=== PATIENT | female | born 1975 | race Caucasian/White ===

== ENCOUNTER 2020-09-26 17:36 | Observation (INO) | payer MEDICAID ==
[~2020-09-26 17:36] MED LIST: Rocuronium 100 MG/10 ML MDV IV ONE
[2020-09-26] MEDS ORDERED: Sodium Chloride 0.9% 2.5 ML Syringe FLUSH PRN ×2 (17:43)
[2020-09-26] MEDS ORDERED: Sodium Chloride 0.9% 10 ML Syringe FLUSH PRN ×2 (17:43)
[2020-09-26] MEDS ORDERED: Sodium Chloride 0.9% 1,000 ML IV ONE (17:43)
[2020-09-26] MEDS ORDERED: propofoL 100 ML IV SCH (17:45)
[2020-09-26] MEDS ORDERED: Rocuronium 100 MG/10 ML MDV IV ONE (17:46)
--- NOTE | 2020-09-26 18:02 | EDM.PDOC ---
ED HPI GENERAL MEDICAL PROBLEM <Patrick Escalante - Last Filed: 09/26/20 18:46> <Navin Villarreal - Last Filed: 09/26/20 20:46> - General Chief Complaint: Trauma Stated Complaint: EMS ARRIVAL Time Seen by Provider: 09/26/20 17:51 - History of Present Illness INITIAL COMMENTS - FREE TEXT/NARRATIVE: History of present illness: [] EMS said the patient had a fall and was stuporous when he got there. She was not protecting her airway. They began [id number] and she talked and said she did fall and had bad back pain. Mother tells me the patient was upset because she fell holding a baby 2 days ago and when she fell holding the baby it injured the baby's head. Mother says the patient second really hard but never had depression antidepressants or suicidal ideas or attempts in the past. Patient had told the granddaughter that she was dizzy. EMS said the patient had told witnesses that she had been dizzy and then fell. History was updated by the mother after talking to the patient's daughter. The daughter told the patient's mother that the patient said she was dizzy while she was standing. Then she said she was numb in her upper extremities and her hands were shaky. The patient was lowered toward the floor but the daughter was unable to really break her fall substantially. Review of systems: As per history of present illness and below otherwise all systems reviewed and negative. Past medical history: As per history of present illness and as reviewed below otherwise noncontributory. Surgical history: As per history of present illness and as reviewed below otherwise noncontributory. Social history: No reported history of drug or alcohol abuse. Family history: As per history of present illness and as reviewed below otherwise noncontributory. Physical exam: Constitutional - well developed, well-nourished and in no acute distress HEENT - normocephalic, no evidence of trauma - external nose and mouth normal - no mass in neck and no JVD - mucosae moist EYES - PERRL, no icterus - no evidence of inflammation, injection, or drainage Respiratory - no respiratory distress, equal bilateral expansion, lungs diminished throughout with diminished chest excursion Cardiovascular - Regular Rhythm with S1 and S2 appreciated and no murmur, gallop or rub. GI - abdomen soft without distension or organomegaly - normal bowel sounds - no guard or rebound Musculoskeletal no gross deformity of long bones or joints - no tenderness, swelling or edema except when we logrolled her she was exquisitely tender in the junction of the thoracic and lumbar spine posteriorly. Neurologic -eyes flutter. At times she vocalizes but incomprehensibly. She does respond by legal entity controller and that is equal and moving her toes is equal. Psychiatric -unable to assess Hematologic - No petechiae or purpura - mucosa appropriate color and sclera not pale - normal nail bed color and refill Integument - no rash or evidence of trauma - normal turgor Diagnostics: [] Therapeutics: [] Impression: [] Plan: [] Definitive disposition and diagnosis as appropriate pending reevaluation and review of above. (Patrick Escalante) 8:42 PM: Signout received from Dr. Escalante at 7 PM. This is a [id number]-old female with no significant past medical history of hypertension, diabetes, liver, lung, kidney, stroke, PR, seizures in the past who presents ER today secondary to a syncopal episode witnessed by her daughter with EMS dispatch. Upon EMS arrival, the patient was unresponsive and a trauma alert was initiated. It appears that the patient needed to be intubated for airway protection by Dr. Escalante in order to safely and emergently obtain the appropriate studies including a CT scan of the head, C-spine, T-spine, L-spine. Upon return from CAT scan, the patient was responding and try to pull out her tube. Dr. Escalante was able to communicate with her and patient was able to be successfully extubated. Patient's labs including her troponin, CBC, CMP, urine drug screen, alcohol, Cov id, CT scan of the head, C-spine, T-spine, L-spine were all unremarkable. Patient was reevaluated by me and she is currently alert awake and oriented x3. Patient is denying any pain or discomfort. Patient reports that she does not recall what happened her other than feeling dizzy while she was with her daughter. This appears to have possibly happened earlier this week per report that was given to Dr. Escalante by the patient's mother. According to Dr. Escalante's conversation with the patient's mother, the patient had a similar episode while she was holding the several days ago where she passed out. Given patient's had 2 episodes of syncope over the last several days, patient will be admitted to the hospital for further cardiac evaluation for syncope. Case was discussed with Dr. Walters who has agreed to assist this with observation level of care for this patient for further cardiac evaluation/syncope work-up. (Navin Villarreal) - Related Data Allergies Allergy/AdvReac Type Severity Reaction Status Date / Time No Known Allergies Allergy Verified 09/26/20 19:24 Home Meds: Home Meds . [Unable to Verify Home Med List] 09/26/20 [History] Review of Systems - Review of Systems Review Of Systems: Comprehensive ROS is negative, except as noted in HPI. <Patrick Escalante - Last Filed: 09/26/20 18:46> - Review of Systems Review Of Systems: See Below <Navin Villarreal - Last Filed: 09/26/20 20:46> ED EXAM, GENERAL - Physical Exam Exam: See Below <Patrick Escalante - Last Filed: 09/26/20 18:46> - Physical Exam Exam: See Below <Navin Villarreal - Last Filed: 09/26/20 20:46> - Physical Exam Free Text/Narrative:: My physical exam is in the HPI (Patrick Escalante) ED TRAUMA PROCEDURES - Endotracheal Intubation Time of Intubation: 17:50 ET Intubation Indication: Airway Protection Preparation: Suction, BVM Set Up, Difficult Airway Equip Airway Assessment: Obese Pre-Oxygenation: Assisted with BVM, 100% FiO2 Anesthesia Meds: Propofol, Rocuronium Placement: Orotracheal Cords Visualized: Yes ETT Size In mm: -75 Number of Attempts: 1 Confirmed By: CO2 Indicator Tube Secured By: By RT <Patrick Escalante - Last Filed: 09/26/20 18:46> <Patrick Escalante - Last Filed: 09/26/20 18:46> <Navin Villarreal - Last Filed: 09/26/20 20:46> #1 Interpretation EKG Interpretation Comments: EKG done at 1831 shows a sinus rhythm with a heart rate of 74 and a OK 130 and axis 53 with normal QRS normal ST and T no prior for comparison impression normal (Patrick Escalante) #2 Interpretation EKG Interpretation Comments: Repeat EKG obtained at 7:52 PM: EKG: As interpreted by ER physician: Phil: Nonspecific ST-T wave abnormalities Normal axis No evidence of ST elevation PR Normal sinus rhythm heart rate of 80 (PhilNavin) Course <BorisPatrick - Last Filed: 09/26/20 18:46> - Vital Signs Text/Narrative:: This patient could be an overdose because of the psychological trauma she is experienced just now. The patient also could be had an injury after falling. I felt like it was extremely questionable whether she could protect her airway and CT scan so I did RSI and intubated her. I explained that to the mother and the patient was taken to CT. Patient returned from CT and initial quick review of the CT scans of the head and spine do not reveal any significant injury to me. There is a strange lucency diffusely in the body of C7. Patient was wide awake and shaking her head in response to questions. She was doing so appropriately when she got back from CT. Patient was able to take a deep breath and ventilate herself well without the ventilator. She agreed to protect her own airway and said she shook her head that she was able to spit up any secretions if she should vomit. I extubated her at 1827 hrs. The patient reports she has had dizzy spells. They have been getting worse since her stress. The dizzy spell was so bad that it caused her to pass out and fall tonight. She denies that she overdosed or took any effort to try to hurt herself. Due to a high probability of clinically significant, life threatening deterioration, the patient required my highest level of preparedness to intervene emergently and I personally spent this critical care time directly and personally managing the patient. This critical care time included obtaining a history; examining the patient; pulse oximetry; ordering and review of studies; arranging urgent treatment with development of a management plan; evaluation of patient's response to treatment; frequent reassessment; and, discussions with other providers. This critical care time was performed to assess and manage the high probability of imminent, life-threatening deterioration that could result in multi-organ failure. It was exclusive of separately billable procedures and treating other patients and teaching time. Critical care time 32 minutes (Patrick Escalante) Last Recorded V/S: Last Vital Signs Temp 98.0 F 09/26/20 18:00 Pulse 85 09/26/20 19:12 Resp 18 09/26/20 19:12 BP 137/92 H 09/26/20 19:12 Pulse Ox 100 09/26/20 19:12 - Orders/Labs/Meds Orders: Active Orders 24 hr Category Date Time Status Blood Glucose Check, Bedside [RC] ONETIME Care 09/26/20 17:43 Active Cervical Spine Precautions [RC] ASDIRECTED Care 09/26/20 17:43 Active EKG Documentation Completion [RC] AM Care 09/26/20 19:28 Active EKG Documentation Completion [RC] STAT Care 09/26/20 17:43 Active Insert Urinary Catheter [OM.PC] Q24H Care 09/26/20 18:00 Ordered Orogastric Tube Managment [Gastrointestinal Tube Mgmt] Care 09/26/20 17:58 Active [RC] ASDIRECTED RASS Sedation Scale [RC] ASDIRECTED Care 09/26/20 17:44 Active Urinary Catheter Assessment [RC] ASDIRECTED Care 09/26/20 17:59 Active CPK [CREATINE KINASE,CK] [CHEM] Stat Lab 09/26/20 20:40 Ordered LACTIC ACID [CHEM] Stat Lab 09/26/20 20:39 Ordered PROLACTIN [CHEM] Stat Lab 09/26/20 20:40 Ordered Sodium Chloride 0.9% [Saline Flush] Med 09/26/20 17:43 Active 10 ml FLUSH ASDIRECTED PRN Sodium Chloride 0.9% [Saline Flush] Med 09/26/20 17:43 Active 10 ml FLUSH ASDIRECTED PRN Sodium Chloride 0.9% [Saline Flush] Med 09/26/20 17:43 Active 2.5 ml FLUSH ASDIRECTED PRN Sodium Chloride 0.9% [Saline Flush] Med 09/26/20 17:43 Active 2.5 ml FLUSH ASDIRECTED PRN propofoL [Diprivan 100 ML] 100 ml Med 09/26/20 17:45 Active IV TITRATE Desired Level of Sedation (RASS) [AST] Click to Edit Oth 09/26/20 17:44 Ordered Saline Lock Insert [OM.PC] Stat Ot 09/26/20 17:43 Ordered Medication Orders Propofol (Diprivan 100 Ml) 100 mls @ 2.7 mls/hr IV TITRATE WILMER; Protocol Sodium Chloride (Sodium Chloride 0.9% 10 Ml Syringe) 10 ml FLUSH ASDIRECTED PRN PRN Reason: Keep Vein Open Last Admin: 09/26/20 18:40 Dose: 10 ml Documented by: DAYANA Sodium Chloride (Sodium Chloride 0.9% 2.5 Ml Syringe) 2.5 ml FLUSH ASDIRECTED PRN PRN Reason: Keep Vein Open Last Admin: 09/26/20 18:40 Dose: 2.5 ml Documented by: DAYANA Sodium Chloride (Sodium Chloride 0.9% 10 Ml Syringe) 10 ml FLUSH ASDIRECTED PRN PRN Reason: Keep Vein Open Last Admin: 09/26/20 18:40 Dose: 10 ml Documented by: DAYANA Sodium Chloride (Sodium Chloride 0.9% 2.5 Ml Syringe) 2.5 ml FLUSH ASDIRECTED PRN PRN Reason: Keep Vein Open Last Admin: 09/26/20 18:40 Dose: 2.5 ml Documented by: DAYANA Labs: Laboratory Tests 09/26/20 09/26/20 09/26/20 Range/Units 17:51 17:51 17:51 WBC 10.04 (4.0-11.0) K/uL RBC 4.90 (4.30-5.90) M/uL Hgb 14.8 (12.0-16.0) g/dL Hct 43.1 (36.0-46.0) % MCV 88.0 (80.0-98.0) fL MCH 30.2 (27.0-32.0) pg MCHC 34.3 (31.0-37.0) g/dL RDW Std Deviation 41.2 (28.0-62.0) fl RDW Coeff of Mega 13 (11.0-15.0) % Plt Count 356 (150-400) K/uL MPV 10.80 (7.40-12.00) fL Neut % (Auto) 54.8 (48.0-80.0) % Lymph % (Auto) 35.6 (16.0-40.0) % Bladen % (Auto) 8.7 (0.0-15.0) % Eos % (Auto) 0.6 (0.0-7.0) % Baso % (Auto) 0.3 (0.0-1.5) % Neut # (Auto) 5.5 (1.4-5.7) K/uL Lymph # (Auto) 3.6 H (0.6-2.4) K/uL Bladen # (Auto) 0.9 H (0.0-0.8) K/uL Eos # (Auto) 0.1 (0.0-0.7) K/uL Baso # (Auto) 0.0 (0.0-0.1) K/uL Nucleated RBC % 0.0 /100WBC Nucleated RBCs # 0 K/uL INR 0.97 Sodium 140 (136-145) mmol/L Potassium 3.7 (3.5-5.1) mmol/L Chloride 105 (98-107) mmol/L Carbon Dioxide 20.1 L (21.0-32.0) mmol/L BUN 15 (7.0-18.0) mg/dL Creatinine 1.1 H (0.6-1.0) mg/dL Est Cr Clr Drug Dosing 68.92 mL/min Estimated GFR (MDRD) 54.2 ml/min Glucose 110 H (74-106) mg/dL Calcium 8.8 (8.5-10.1) mg/dL Total Bilirubin 0.5 (0.2-1.0) mg/dL AST 19 (15-37) IU/L ALT 25 (14-63) IU/L Alkaline Phosphatase 96 (46-116) U/L Troponin I (0.000-0.056) ng/mL Total Protein 7.8 (6.4-8.2) g/dL Albumin 4.5 (3.4-5.0) g/dL Globulin 3.3 (2.6-4.0) g/dL Albumin/Globulin Ratio 1.4 (0.9-1.6) Lipase 83 (73-393) U/L TSH 3rd Generation (0.36-3.74) uIU/mL Urine Color Urine Appearance Urine pH (5.0-8.0) Ur Specific [place] (1.001-1.035) Urine Protein (NEGATIVE) mg/dL Urine Glucose (UA) (NEGATIVE) mg/dL Urine Ketones (NEGATIVE) mg/dL Urine Occult Blood (NEGATIVE) Urine Nitrite (NEGATIVE) Urine Bilirubin (NEGATIVE) Urine Urobilinogen (<2.0) EU/dL Ur Leukocyte Esterase (NEGATIVE) Urine RBC (0-2/HPF) Urine WBC (0-5/HPF) Ur Epithelial Cells (NONE-FEW) Urine Bacteria (NEGATIVE) Urine HCG, Qual (NEGATIVE) Salicylates (0-20) mg/dL Urine Opiates Screen (NEGATIVE) Ur Oxycodone Screen (NEGATIVE) Urine Methadone Screen (NEGATIVE) Acetaminophen ug/mL Ur Barbiturates Screen (NEGATIVE) Ur Phencyclidine Scrn (NEGATIVE) Ur Amphetamine Screen (NEGATIVE) U Methamphetamines Scrn (NEGATIVE) U Benzodiazepines Scrn (NEGATIVE) U Cocaine Metab Screen (NEGATIVE) U Marijuana (THC) Screen (NEGATIVE) Ethyl Alcohol < 3.0 mg/dL SARS-CoV-2 RNA (TO) (NEGATIVE) Blood Type Antibody Screen 09/26/20 09/26/20 09/26/20 Range/Units 17:51 17:51 18:26 WBC (4.0-11.0) K/uL RBC (4.30-5.90) M/uL Hgb (12.0-16.0) g/dL Hct (36.0-46.0) % MCV (80.0-98.0) fL MCH (27.0-32.0) pg MCHC (31.0-37.0) g/dL RDW Std Deviation (28.0-62.0) fl RDW Coeff of Mega (11.0-15.0) % Plt Count (150-400) K/uL MPV (7.40-12.00) fL Neut % (Auto) (48.0-80.0) % Lymph % (Auto) (16.0-40.0) % Bladen % (Auto) (0.0-15.0) % Eos % (Auto) (0.0-7.0) % Baso % (Auto) (0.0-1.5) % Neut # (Auto) (1.4-5.7) K/uL Lymph # (Auto) (0.6-2.4) K/uL Bladen # (Auto) (0.0-0.8) K/uL Eos # (Auto) (0.0-0.7) K/uL Baso # (Auto) (0.0-0.1) K/uL Nucleated RBC % /100WBC Nucleated RBCs # K/uL INR Sodium (136-145) mmol/L Potassium (3.5-5.1) mmol/L Chloride (98-107) mmol/L Carbon Dioxide (21.0-32.0) mmol/L BUN (7.0-18.0) mg/dL Creatinine (0.6-1.0) mg/dL Est Cr Clr Drug Dosing mL/min Estimated GFR (MDRD) ml/min Glucose (74-106) mg/dL Calcium (8.5-10.1) mg/dL Total Bilirubin (0.2-1.0) mg/dL AST (15-37) IU/L ALT (14-63) IU/L Alkaline Phosphatase (46-116) U/L Troponin I < 0.050 (0.000-0.056) ng/mL Total Protein (6.4-8.2) g/dL Albumin (3.4-5.0) g/dL Globulin (2.6-4.0) g/dL Albumin/Globulin Ratio (0.9-1.6) Lipase (73-393) U/L TSH 3rd Generation 0.38 (0.36-3.74) uIU/mL Urine Color Urine Appearance Urine pH (5.0-8.0) Ur Specific [place] (1.001-1.035) Urine Protein (NEGATIVE) mg/dL Urine Glucose (UA) (NEGATIVE) mg/dL Urine Ketones (NEGATIVE) mg/dL Urine Occult Blood (NEGATIVE) Urine Nitrite (NEGATIVE) Urine Bilirubin (NEGATIVE) Urine Urobilinogen (<2.0) EU/dL Ur Leukocyte Esterase (NEGATIVE) Urine RBC (0-2/HPF) Urine WBC (0-5/HPF) Ur Epithelial Cells (NONE-FEW) Urine Bacteria (NEGATIVE) Urine HCG, Qual (NEGATIVE) Salicylates 0.8 (0-20) mg/dL Urine Opiates Screen (NEGATIVE) Ur Oxycodone Screen (NEGATIVE) Urine Methadone Screen (NEGATIVE) Acetaminophen <2.0 ug/mL Ur Barbiturates Screen (NEGATIVE) Ur Phencyclidine Scrn (NEGATIVE) Ur Amphetamine Screen (NEGATIVE) U Methamphetamines Scrn (NEGATIVE) U Benzodiazepines Scrn (NEGATIVE) U Cocaine Metab Screen (NEGATIVE) U Marijuana (THC) Screen (NEGATIVE) Ethyl Alcohol mg/dL SARS-CoV-2 RNA (TO) (NEGATIVE) Blood Type O NEGATIVE Antibody Screen NEGATIVE 09/26/20 09/26/20 09/26/20 Range/Units 19:02 19:02 19:02 WBC (4.0-11.0) K/uL RBC (4.30-5.90) M/uL Hgb (12.0-16.0) g/dL Hct (36.0-46.0) % MCV (80.0-98.0) fL MCH (27.0-32.0) pg MCHC (31.0-37.0) g/dL RDW Std Deviation (28.0-62.0) fl RDW Coeff of Mega (11.0-15.0) % Plt Count (150-400) K/uL MPV (7.40-12.00) fL Neut % (Auto) (48.0-80.0) % Lymph % (Auto) (16.0-40.0) % Bladen % (Auto) (0.0-15.0) % Eos % (Auto) (0.0-7.0) % Baso % (Auto) (0.0-1.5) % Neut # (Auto) (1.4-5.7) K/uL Lymph # (Auto) (0.6-2.4) K/uL Bladen # (Auto) (0.0-0.8) K/uL Eos # (Auto) (0.0-0.7) K/uL Baso # (Auto) (0.0-0.1) K/uL Nucleated RBC % /100WBC Nucleated RBCs # K/uL INR Sodium (136-145) mmol/L Potassium (3.5-5.1) mmol/L Chloride (98-107) mmol/L Carbon Dioxide (21.0-32.0) mmol/L BUN (7.0-18.0) mg/dL Creatinine (0.6-1.0) mg/dL Est Cr Clr Drug Dosing mL/min Estimated GFR (MDRD) ml/min Glucose (74-106) mg/dL Calcium (8.5-10.1) mg/dL Total Bilirubin (0.2-1.0) mg/dL AST (15-37) IU/L ALT (14-63) IU/L Alkaline Phosphatase (46-116) U/L Troponin I (0.000-0.056) ng/mL Total Protein (6.4-8.2) g/dL Albumin (3.4-5.0) g/dL Globulin (2.6-4.0) g/dL Albumin/Globulin Ratio (0.9-1.6) Lipase (73-393) U/L TSH 3rd Generation (0.36-3.74) uIU/mL Urine Color YELLOW Urine Appearance CLEAR Urine pH 6.0 (5.0-8.0) Ur Specific [place] 1.010 (1.001-1.035) Urine Protein NEGATIVE (NEGATIVE) mg/dL Urine Glucose (UA) NEGATIVE (NEGATIVE) mg/dL Urine Ketones NEGATIVE (NEGATIVE) mg/dL Urine Occult Blood NEGATIVE (NEGATIVE) Urine Nitrite NEGATIVE (NEGATIVE) Urine Bilirubin NEGATIVE (NEGATIVE) Urine Urobilinogen 0.2 (<2.0) EU/dL Ur Leukocyte Esterase NEGATIVE (NEGATIVE) Urine RBC 0-2 (0-2/HPF) Urine WBC 0-2 (0-5/HPF) Ur Epithelial Cells FEW (NONE-FEW) Urine Bacteria RARE (NEGATIVE) Urine HCG, Qual NEGATIVE (NEGATIVE) Salicylates (0-20) mg/dL Urine Opiates Screen NEGATIVE (NEGATIVE) Ur Oxycodone Screen NEGATIVE (NEGATIVE) Urine Methadone Screen NEGATIVE (NEGATIVE) Acetaminophen ug/mL Ur Barbiturates Screen NEGATIVE (NEGATIVE) Ur Phencyclidine Scrn NEGATIVE (NEGATIVE) Ur Amphetamine Screen NEGATIVE (NEGATIVE) U Methamphetamines Scrn NEGATIVE (NEGATIVE) U Benzodiazepines Scrn NEGATIVE (NEGATIVE) U Cocaine Metab Screen NEGATIVE (NEGATIVE) U Marijuana (THC) Screen NEGATIVE (NEGATIVE) Ethyl Alcohol mg/dL SARS-CoV-2 RNA (TO) (NEGATIVE) Blood Type Antibody Screen 09/26/20 Range/Units 19:02 WBC (4.0-11.0) K/uL RBC (4.30-5.90) M/uL Hgb (12.0-16.0) g/dL Hct (36.0-46.0) % MCV (80.0-98.0) fL MCH (27.0-32.0) pg MCHC (31.0-37.0) g/dL RDW Std Deviation (28.0-62.0) fl RDW Coeff of Mega (11.0-15.0) % Plt Count (150-400) K/uL MPV (7.40-12.00) fL Neut % (Auto) (48.0-80.0) % Lymph % (Auto) (16.0-40.0) % Bladen % (Auto) (0.0-15.0) % Eos % (Auto) (0.0-7.0) % Baso % (Auto) (0.0-1.5) % Neut # (Auto) (1.4-5.7) K/uL Lymph # (Auto) (0.6-2.4) K/uL Bladen # (Auto) (0.0-0.8) K/uL Eos # (Auto) (0.0-0.7) K/uL Baso # (Auto) (0.0-0.1) K/uL Nucleated RBC % /100WBC Nucleated RBCs # K/uL INR Sodium (136-145) mmol/L Potassium (3.5-5.1) mmol/L Chloride (98-107) mmol/L Carbon Dioxide (21.0-32.0) mmol/L BUN (7.0-18.0) mg/dL Creatinine (0.6-1.0) mg/dL Est Cr Clr Drug Dosing mL/min Estimated GFR (MDRD) ml/min Glucose (74-106) mg/dL Calcium (8.5-10.1) mg/dL Total Bilirubin (0.2-1.0) mg/dL AST (15-37) IU/L ALT (14-63) IU/L Alkaline Phosphatase (46-116) U/L Troponin I (0.000-0.056) ng/mL Total Protein (6.4-8.2) g/dL Albumin (3.4-5.0) g/dL Globulin (2.6-4.0) g/dL Albumin/Globulin Ratio (0.9-1.6) Lipase (73-393) U/L TSH 3rd Generation (0.36-3.74) uIU/mL Urine Color Urine Appearance Urine pH (5.0-8.0) Ur Specific [place] (1.001-1.035) Urine Protein (NEGATIVE) mg/dL Urine Glucose (UA) (NEGATIVE) mg/dL Urine Ketones (NEGATIVE) mg/dL Urine Occult Blood (NEGATIVE) Urine Nitrite (NEGATIVE) Urine Bilirubin (NEGATIVE) Urine Urobilinogen (<2.0) EU/dL Ur Leukocyte Esterase (NEGATIVE) Urine RBC (0-2/HPF) Urine WBC (0-5/HPF) Ur Epithelial Cells (NONE-FEW) Urine Bacteria (NEGATIVE) Urine HCG, Qual (NEGATIVE) Salicylates (0-20) mg/dL Urine Opiates Screen (NEGATIVE) Ur Oxycodone Screen (NEGATIVE) Urine Methadone Screen (NEGATIVE) Acetaminophen ug/mL Ur Barbiturates Screen (NEGATIVE) Ur Phencyclidine Scrn (NEGATIVE) Ur Amphetamine Screen (NEGATIVE) U Methamphetamines Scrn (NEGATIVE) U Benzodiazepines Scrn (NEGATIVE) U Cocaine Metab Screen (NEGATIVE) U Marijuana (THC) Screen (NEGATIVE) Ethyl Alcohol mg/dL SARS-CoV-2 RNA (TO) NEGATIVE (NEGATIVE) Blood Type Antibody Screen Meds: Medications Generic Name Dose Route Start Last Admin Trade Name Freq PRN Reason Stop Dose Admin Propofol 100 mls @ 2.7 mls/hr 09/26/20 17:45 Diprivan 100 Ml IV TITRATE WILMER Protocol 5 MCG/KG/MIN Sodium Chloride 10 ml 09/26/20 17:43 09/26/20 18:40 Sodium Chloride 0.9% 10 Ml Syringe FLUSH 10 ml ASDIRECTED PRN Administration Keep Vein Open Sodium Chloride 2.5 ml 09/26/20 17:43 09/26/20 18:40 Sodium Chloride 0.9% 2.5 Ml Syringe FLUSH 2.5 ml ASDIRECTED PRN Administration Keep Vein Open Sodium Chloride 10 ml 09/26/20 17:43 09/26/20 18:40 Sodium Chloride 0.9% 10 Ml Syringe FLUSH 10 ml ASDIRECTED PRN Administration Keep Vein Open Sodium Chloride 2.5 ml 09/26/20 17:43 09/26/20 18:40 Sodium Chloride 0.9% 2.5 Ml Syringe FLUSH 2.5 ml ASDIRECTED PRN Administration Keep Vein Open Discontinued Medications Generic Name Dose Route Start Last Admin Trade Name Freq PRN Reason Stop Dose Admin Sodium Chloride 1,000 mls @ 999 mls/hr 09/26/20 17:43 09/26/20 18:40 Normal Saline IV 09/26/20 18:43 999 mls/hr .Bolus ONE Administration Departure <Patrick Escalante - Last Filed: 09/26/20 18:46> - Departure Time of Disposition: 20:46 Condition: Good <Navin Villarreal - Last Filed: 09/26/20 20:46> - Departure Disposition: Refer to Observation Clinical Impression: Syncope Qualifiers: Syncope type: unspecified Qualified Code(s): R55 - Syncope and collapse - Discharge Information Referrals: PCP,None [Primary Care Provider] - Forms: ED Department Discharge Sepsis Event Note (ED) - Focused Exam Vital Signs: Vital Signs Temp Pulse Resp BP BP Pulse Ox 09/26/20 19:12 85 18 137/92 H 100 09/26/20 18:27 84 18 133/73 99 09/26/20 18:00 98.0 F 78 16 128/71 100 09/26/20 17:45 98.1 F 80 18 130/71 98 09/26/20 17:36 95.3 F L 89 26 H 139/108 H 100 - My Orders Last 24 Hours: My Active Orders 09/26/20 19:28 EKG Documentation Completion [RC] AM - Assessment/Plan Last 24 Hours: My Active Orders 09/26/20 19:28 EKG Documentation Completion [RC] AM
[2020-09-26 18:35] LABS: BLOOD UREA NITROGEN,BUN 15 mg/dL (7.0-18.0); CARBON DIOXIDE,CO2 20.1 mmol/L (21.0-32.0); CHLORIDE,CL 105 mmol/L (98-107); GLUCOSE RANDOM 110 mg/dL (74-106); LIPASE 83 U/L (73-393); POTASSIUM,K 3.7 mmol/L (3.5-5.1); SODIUM,NA 140 mmol/L (136-145)
[2020-09-26 18:44] LABS: ACETAMINOPHEN <2.0 ug/mL
--- NOTE | 2020-09-26 19:00 | CR ---
Indication: Trauma post intubation Comparison: None available. Technique: Single AP view chest Findings: There is hyperinflation and chronic interstitial change. There is demonstration endotracheal tube within the mid trachea. There is no dense consolidation, effusion or pneumothorax. The cardiac silhouette is mildly prominent. The bony thorax is grossly intact. Impression: Satisfactory position of endotracheal tube with mild hyperinflation. No dense consolidation is appreciated. Dictated by Keon Denson MD @ 09/26/2020 6:59:[address] Keon Denson @ Sep 26 2020 6:59PM
--- NOTE | 2020-09-26 19:12 | CT ---
INDICATION: Trauma TECHNIQUE: CT head without contrast. COMPARISON: None available FINDINGS: Artifact limits evaluation of the posterior fossa. The ventricles and sulci are within normal limits. There is no mass effect or midline shift. There is no loss of uribe-white differentiation. There is no evidence of gross acute intracranial hemorrhage. No acute calvarial fracture is seen. Minor maxillary sinus mucosal thickening is noted. The mastoid air cells are clear. The visualized orbits are within normal limits. An endotracheal tube is seen with fluid/debris in the nasal cavity and nasopharynx. IMPRESSION: No evidence of a gross acute intracranial hemorrhage, mass effect or loss of uribe-white differentiation. Please note that all CT scans at this facility use dose modulation, iterative reconstruction, and/or weight-based dosing when appropriate to reduce radiation dose to as low as reasonably achievable. Dictated by Cuate Vizcaino MD @ 09/26/2020 7:10:[address] Cuate Vizcaino @ Sep 26 2020 7:10PM
--- NOTE | 2020-09-26 19:19 | CT ---
INDICATION: Trauma TECHNIQUE: CT cervical spine without contrast. COMPARISON: None available FINDINGS: There is straightening of the cervical lordosis. The craniocervical and atlantoaxial alignments are near anatomical. There is no evidence of an acute cervical spine fracture. A C7 hemangioma is seen. There is no significant precervical soft tissue swelling. Post thyroidectomy changes are noted. An endotracheal tube is seen. IMPRESSION: No evidence of an acute cervical spine fracture. Please note that all CT scans at this facility use dose modulation, iterative reconstruction, and/or weight-based dosing when appropriate to reduce radiation dose to as low as reasonably achievable. Dictated by Cuate Vizcaino MD @ 09/26/2020 7:17:[address] Cuate Vizcaino @ Sep 26 2020 7:17PM
--- NOTE | 2020-09-26 19:25 | CR ---
INDICATION: Trauma TECHNIQUE: Single view pelvis COMPARISONS: None available. FINDINGS: Femoral heads are well-seated in the acetabula. There is no displaced fracture, dislocation or acute osseous abnormality. There is axial loss of joint space with minimal marginal osteophyte formation. The soft tissues are unremarkable. IMPRESSION: Mild degenerative changes of the hips without acute osseous abnormality. Dictated by Keon Denson MD @ 09/26/2020 7:23:[address] Keon Denson @ Sep 26 2020 7:23PM
--- NOTE | 2020-09-26 19:29 | CT ---
INDICATION: Trauma TECHNIQUE: CT thoracic spine without contrast. COMPARISON: None available FINDINGS: The thoracic spine alignment is within normal limits. The facets are anatomically aligned. There is no evidence of an acute thoracic spine fracture. No paravertebral soft tissue mass is seen. An endotracheal tube is noted. There is an ovoid density within the gallbladder suggestive of a sludge ball versus a poorly calcified gallstone. A 1 cm anterior hepatic low-density lesion is seen, demonstrating higher than water attenuation, not well evaluated. IMPRESSION: No evidence of an acute thoracic spine fracture. A 1 cm higher than water attenuation hepatic lesion, not well evaluated. Please note that all CT scans at this facility use dose modulation, iterative reconstruction, and/or weight-based dosing when appropriate to reduce radiation dose to as low as reasonably achievable. Dictated by Cuate Vizcaino MD @ 09/26/2020 7:28:[address] Cuate Vizcaino @ Sep 26 2020 7:28PM
--- NOTE | 2020-09-26 19:37 | CT ---
INDICATION: Trauma TECHNIQUE: CT lumbar spine without contrast. COMPARISON: None available FINDINGS: There is bilateral L5 spondylolysis with grade 1 anterolisthesis of L5 on S1. The lumbar spine alignment is otherwise within normal limits. The vertebral body heights are preserved. There is no evidence of an acute lumbar spine fracture. There are degenerative changes at the lumbosacral junction. No paravertebral soft tissue mass is seen. IMPRESSION: No evidence of an acute lumbar spine fracture. Please note that all CT scans at this facility use dose modulation, iterative reconstruction, and/or weight-based dosing when appropriate to reduce radiation dose to as low as reasonably achievable. Dictated by Cuate Vizcaino MD @ 09/26/2020 7:36:[address] Cuate Vizcaino @ Sep 26 2020 7:36PM
--- NOTE | 2020-09-26 19:54 | CR ---
INDICATION: Post extubation. TECHNIQUE: Chest 1 view. COMPARISON: 09/26/2020, 1751 hours. FINDINGS: Cardiovascular and mediastinum: Heart size and vasculature are normal in caliber and appearance. Mediastinum is within normal limits. Lungs and pleural space: Lungs are clear. No sign of infiltrate or mass. No sign of pleural effusion. No pneumothorax. Bones and soft tissues: No significant findings. IMPRESSION: Lungs are clear. Dictated by Quincy Zhong MD @ 09/26/2020 7:52:[address] Quincy Zhong @ Sep 26 2020 7:52PM
[2020-09-26] MEDS ORDERED: Albuterol/Ipratropium 3.0-0.5 MG/3 ML Neb Soln NEB PRN (21:09)
[2020-09-26] MEDS ORDERED: Ondansetron 4 MG/2 ML SDV IVPUSH PRN (21:09)
[2020-09-26] MEDS ORDERED: Acetaminophen 325 MG Tab PO PRN (21:09)
--- NOTE | 2020-09-26 21:18 | PCM.HP.2 ---
H&P History of Present Illness - General Date of Service: 09/26/20 Admit Problem/Dx: Admission Diagnosis/Problem Admission Diagnosis/Problem Syncope - History of Present Illness Initial Comments - Free Text/Narative: Patient is a 45-year-old female with past medical history of thyroid cancer status post resection, last radiation in November 2019 follows up with an senior front end engineer on outpatient basis for a remanent nodule of the cancer, who comes in secondary to episode of syncope and unresponsiveness. In the ER patient was found to be unresponsive and due to concerns of airway protection patient was intubated and extensive imaging was done including CT scan of the head, neck, spine all of that came back negative for any acute fractures. Soon after the imaging patient started to fight the tube and wake up, as a result patient was extubated and her respiratory status was monitored closely. She was able to speak and maintain her airway thereafter. Reportedly patient was seen by her granddaughter who states that patient became shaky and lost consciousness and fell. There was no reported seizure-like activity. Per patient she has been having dizzy episodes since March of this year. States that she had informed her senior front end engineer about these episodes but nothing really was done. She states that she has not reported the symptoms to her primary care doctor Dr. Rasheed, patient states that 2 days back she was holding a child at a care center when she had a similar episode which ended up resulting in biliary really hurt. Patient was quite tearful during my conversation. Reported some soreness in her throat from intubation but no chest pain, nausea, vomiting or syncope. Patient denied any suicidal ideation. Patient has no history of depression or anxiety. EKG unremarkable, troponin was negative. Family at bedside. - Related Data Allergies/Adverse Reactions: Allergies Allergy/AdvReac Type Severity Reaction Status Date / Time No Known Allergies Allergy Verified 09/26/20 23:49 Home Medications: Home Meds Levothyroxine [Synthroid] 100 mcg PO ACBREAKFAST 09/26/20 [History] Past Medical History Other OB/BYN History: unable to obtain Other Psychiatric History: unable to obtain Other Endocrine/Metabolic History: pt mother reports hx of thyroid cancer. - Past Surgical History Other HEENT Surgeries/Procedures: Unable to obtain Other Cardiovascular Surgeries/Procedures: unable to obtain Other Respiratory Surgeries/Procedures: unable to obtain Other GI Surgeries/Procedures: unable to obtain Other Female Surgeries/Procedures: unable to obtain Other Endocrine Surgeries/Procedures: unable to obtain Other Neurological Surgeries/Procedures: unable to obtain Other Musculoskeletal Surgeries/Procedures:: unable to obtain Social & Family History - Family History Family Medical History: No Pertinent Family History - Tobacco Use Tobacco Use Status *Q: Unknown Ever Used Tobacco - Recreational Drug Use Recreational Drug Use: No H&P Review of Systems - Review of Systems: Review Of Systems: See Below General: Reports: Malaise, Weakness, Fatigue. Denies: Fever, Chills Pulmonary: Denies: Shortness of Breath, Wheezing Cardiovascular: Reports: Syncope. Denies: Chest Pain, Palpitations, Dyspnea on Exertion, Orthopnea, Lightheadedness Gastrointestinal: Denies: Abdominal Pain, Anorexia, Black Stool Genitourinary: Denies: Frequency, Burning, Pain Musculoskeletal: Denies: Neck Pain, Shoulder Pain, Arm Pain Skin: Denies: Cyanosis, Jaundice Psychiatric: Denies: Confusion, Depression, Mood Lability Neurological: Reports: Headache. Denies: Confusion, Dizziness, Paresthesia, Pre-Existing Deficit, Difficulty Walking Hematologic/Lymphatic: Denies: Easy Bleeding, Easy Bruising Exam - Exam Exam: See Below - Vital Signs Vital Signs: Last Vital Signs Temp 36.7 C 09/26/20 18:00 Pulse 85 09/26/20 19:12 Resp 18 09/26/20 19:12 BP 137/92 H 09/26/20 19:12 Pulse Ox 100 09/26/20 19:12 Weight: 90 kg - Exam General: Alert, Oriented, Mild Distress Neck: Supple, Trachea Midline Lungs: Clear to Auscultation, Normal Respiratory Effort Cardiovascular: Regular Rate, Regular Rhythm GI/Abdominal Exam: Normal Bowel Sounds, Soft, Non-Tender Back Exam: Normal Inspection. No: CVA Tenderness (L), CVA Tenderness (R) Extremities: Normal Inspection, Normal Range of Motion, Non-Tender, No Pedal Edema. No: Joint Swelling, Arm Pain - Patient Data Lab Results Last 24 hrs: Laboratory Results - last 24 hr 09/26/20 09/26/20 09/26/20 Range/Units 17:51 17:51 17:51 WBC 10.04 (4.0-11.0) K/uL RBC 4.90 (4.30-5.90) M/uL Hgb 14.8 (12.0-16.0) g/dL Hct 43.1 (36.0-46.0) % MCV 88.0 (80.0-98.0) fL MCH 30.2 (27.0-32.0) pg MCHC 34.3 (31.0-37.0) g/dL RDW Std Deviation 41.2 (28.0-62.0) fl RDW Coeff of Mega 13 (11.0-15.0) % Plt Count 356 (150-400) K/uL MPV 10.80 (7.40-12.00) fL Neut % (Auto) 54.8 (48.0-80.0) % Lymph % (Auto) 35.6 (16.0-40.0) % Ocean % (Auto) 8.7 (0.0-15.0) % Eos % (Auto) 0.6 (0.0-7.0) % Baso % (Auto) 0.3 (0.0-1.5) % Neut # (Auto) 5.5 (1.4-5.7) K/uL Lymph # (Auto) 3.6 H (0.6-2.4) K/uL Ocean # (Auto) 0.9 H (0.0-0.8) K/uL Eos # (Auto) 0.1 (0.0-0.7) K/uL Baso # (Auto) 0.0 (0.0-0.1) K/uL Nucleated RBC % 0.0 /100WBC Nucleated RBCs # 0 K/uL INR 0.97 Sodium 140 (136-145) mmol/L Potassium 3.7 (3.5-5.1) mmol/L Chloride 105 (98-107) mmol/L Carbon Dioxide 20.1 L (21.0-32.0) mmol/L BUN 15 (7.0-18.0) mg/dL Creatinine 1.1 H (0.6-1.0) mg/dL Est Cr Clr Drug Dosing 68.92 mL/min Estimated GFR (MDRD) 54.2 ml/min Glucose 110 H (74-106) mg/dL Lactic Acid (0.4-2.0) mmol/L Calcium 8.8 (8.5-10.1) mg/dL Total Bilirubin 0.5 (0.2-1.0) mg/dL AST 19 (15-37) IU/L ALT 25 (14-63) IU/L Alkaline Phosphatase 96 (46-116) U/L Creatine Kinase (26-308) U/L Troponin I (0.000-0.056) ng/mL Total Protein 7.8 (6.4-8.2) g/dL Albumin 4.5 (3.4-5.0) g/dL Globulin 3.3 (2.6-4.0) g/dL Albumin/Globulin Ratio 1.4 (0.9-1.6) Lipase 83 (73-393) U/L TSH 3rd Generation (0.36-3.74) uIU/mL Prolactin ng/mL Urine Color Urine Appearance Urine pH (5.0-8.0) Ur Specific [place] (1.001-1.035) Urine Protein (NEGATIVE) mg/dL Urine Glucose (UA) (NEGATIVE) mg/dL Urine Ketones (NEGATIVE) mg/dL Urine Occult Blood (NEGATIVE) Urine Nitrite (NEGATIVE) Urine Bilirubin (NEGATIVE) Urine Urobilinogen (<2.0) EU/dL Ur Leukocyte Esterase (NEGATIVE) Urine RBC (0-2/HPF) Urine WBC (0-5/HPF) Ur Epithelial Cells (NONE-FEW) Urine Bacteria (NEGATIVE) Urine HCG, Qual (NEGATIVE) Salicylates (0-20) mg/dL Urine Opiates Screen (NEGATIVE) Ur Oxycodone Screen (NEGATIVE) Urine Methadone Screen (NEGATIVE) Acetaminophen ug/mL Ur Barbiturates Screen (NEGATIVE) Ur Phencyclidine Scrn (NEGATIVE) Ur Amphetamine Screen (NEGATIVE) U Methamphetamines Scrn (NEGATIVE) U Benzodiazepines Scrn (NEGATIVE) U Cocaine Metab Screen (NEGATIVE) U Marijuana (THC) Screen (NEGATIVE) Ethyl Alcohol < 3.0 mg/dL SARS-CoV-2 RNA (TO) (NEGATIVE) Blood Type Antibody Screen 09/26/20 09/26/20 09/26/20 Range/Units 17:51 17:51 17:51 WBC (4.0-11.0) K/uL RBC (4.30-5.90) M/uL Hgb (12.0-16.0) g/dL Hct (36.0-46.0) % MCV (80.0-98.0) fL MCH (27.0-32.0) pg MCHC (31.0-37.0) g/dL RDW Std Deviation (28.0-62.0) fl RDW Coeff of Mega (11.0-15.0) % Plt Count (150-400) K/uL MPV (7.40-12.00) fL Neut % (Auto) (48.0-80.0) % Lymph % (Auto) (16.0-40.0) % Ocean % (Auto) (0.0-15.0) % Eos % (Auto) (0.0-7.0) % Baso % (Auto) (0.0-1.5) % Neut # (Auto) (1.4-5.7) K/uL Lymph # (Auto) (0.6-2.4) K/uL Ocean # (Auto) (0.0-0.8) K/uL Eos # (Auto) (0.0-0.7) K/uL Baso # (Auto) (0.0-0.1) K/uL Nucleated RBC % /100WBC Nucleated RBCs # K/uL INR Sodium (136-145) mmol/L Potassium (3.5-5.1) mmol/L Chloride (98-107) mmol/L Carbon Dioxide (21.0-32.0) mmol/L BUN (7.0-18.0) mg/dL Creatinine (0.6-1.0) mg/dL Est Cr Clr Drug Dosing mL/min Estimated GFR (MDRD) ml/min Glucose (74-106) mg/dL Lactic Acid (0.4-2.0) mmol/L Calcium (8.5-10.1) mg/dL Total Bilirubin (0.2-1.0) mg/dL AST (15-37) IU/L ALT (14-63) IU/L Alkaline Phosphatase (46-116) U/L Creatine Kinase 202 (26-308) U/L Troponin I < 0.050 (0.000-0.056) ng/mL Total Protein (6.4-8.2) g/dL Albumin (3.4-5.0) g/dL Globulin (2.6-4.0) g/dL Albumin/Globulin Ratio (0.9-1.6) Lipase (73-393) U/L TSH 3rd Generation 0.38 (0.36-3.74) uIU/mL Prolactin 34.0 ng/mL Urine Color Urine Appearance Urine pH (5.0-8.0) Ur Specific [place] (1.001-1.035) Urine Protein (NEGATIVE) mg/dL Urine Glucose (UA) (NEGATIVE) mg/dL Urine Ketones (NEGATIVE) mg/dL Urine Occult Blood (NEGATIVE) Urine Nitrite (NEGATIVE) Urine Bilirubin (NEGATIVE) Urine Urobilinogen (<2.0) EU/dL Ur Leukocyte Esterase (NEGATIVE) Urine RBC (0-2/HPF) Urine WBC (0-5/HPF) Ur Epithelial Cells (NONE-FEW) Urine Bacteria (NEGATIVE) Urine HCG, Qual (NEGATIVE) Salicylates 0.8 (0-20) mg/dL Urine Opiates Screen (NEGATIVE) Ur Oxycodone Screen (NEGATIVE) Urine Methadone Screen (NEGATIVE) Acetaminophen <2.0 ug/mL Ur Barbiturates Screen (NEGATIVE) Ur Phencyclidine Scrn (NEGATIVE) Ur Amphetamine Screen (NEGATIVE) U Methamphetamines Scrn (NEGATIVE) U Benzodiazepines Scrn (NEGATIVE) U Cocaine Metab Screen (NEGATIVE) U Marijuana (THC) Screen (NEGATIVE) Ethyl Alcohol mg/dL SARS-CoV-2 RNA (TO) (NEGATIVE) Blood Type Antibody Screen 09/26/20 09/26/20 09/26/20 Range/Units 18:26 19:02 19:02 WBC (4.0-11.0) K/uL RBC (4.30-5.90) M/uL Hgb (12.0-16.0) g/dL Hct (36.0-46.0) % MCV (80.0-98.0) fL MCH (27.0-32.0) pg MCHC (31.0-37.0) g/dL RDW Std Deviation (28.0-62.0) fl RDW Coeff of Mega (11.0-15.0) % Plt Count (150-400) K/uL MPV (7.40-12.00) fL Neut % (Auto) (48.0-80.0) % Lymph % (Auto) (16.0-40.0) % Ocean % (Auto) (0.0-15.0) % Eos % (Auto) (0.0-7.0) % Baso % (Auto) (0.0-1.5) % Neut # (Auto) (1.4-5.7) K/uL Lymph # (Auto) (0.6-2.4) K/uL [place] # (Auto) (0.0-0.8) K/uL Eos # (Auto) (0.0-0.7) K/uL Baso # (Auto) (0.0-0.1) K/uL Nucleated RBC % /100WBC Nucleated RBCs # K/uL INR Sodium (136-145) mmol/L Potassium (3.5-5.1) mmol/L Chloride (98-107) mmol/L Carbon Dioxide (21.0-32.0) mmol/L BUN (7.0-18.0) mg/dL Creatinine (0.6-1.0) mg/dL Est Cr Clr Drug Dosing mL/min Estimated GFR (MDRD) ml/min Glucose (74-106) mg/dL Lactic Acid (0.4-2.0) mmol/L Calcium (8.5-10.1) mg/dL Total Bilirubin (0.2-1.0) mg/dL AST (15-37) IU/L ALT (14-63) IU/L Alkaline Phosphatase (46-116) U/L Creatine Kinase (26-308) U/L Troponin I (0.000-0.056) ng/mL Total Protein (6.4-8.2) g/dL Albumin (3.4-5.0) g/dL Globulin (2.6-4.0) g/dL Albumin/Globulin Ratio (0.9-1.6) Lipase (73-393) U/L TSH 3rd Generation (0.36-3.74) uIU/mL Prolactin ng/mL Urine Color YELLOW Urine Appearance CLEAR Urine pH 6.0 (5.0-8.0) Ur Specific [place] 1.010 (1.001-1.035) Urine Protein NEGATIVE (NEGATIVE) mg/dL Urine Glucose (UA) NEGATIVE (NEGATIVE) mg/dL Urine Ketones NEGATIVE (NEGATIVE) mg/dL Urine Occult Blood NEGATIVE (NEGATIVE) Urine Nitrite NEGATIVE (NEGATIVE) Urine Bilirubin NEGATIVE (NEGATIVE) Urine Urobilinogen 0.2 (<2.0) EU/dL Ur Leukocyte Esterase NEGATIVE (NEGATIVE) Urine RBC 0-2 (0-2/HPF) Urine WBC 0-2 (0-5/HPF) Ur Epithelial Cells FEW (NONE-FEW) Urine Bacteria RARE (NEGATIVE) Urine HCG, Qual NEGATIVE (NEGATIVE) Salicylates (0-20) mg/dL Urine Opiates Screen (NEGATIVE) Ur Oxycodone Screen (NEGATIVE) Urine Methadone Screen (NEGATIVE) Acetaminophen ug/mL Ur Barbiturates Screen (NEGATIVE) Ur Phencyclidine Scrn (NEGATIVE) Ur Amphetamine Screen (NEGATIVE) U Methamphetamines Scrn (NEGATIVE) U Benzodiazepines Scrn (NEGATIVE) U Cocaine Metab Screen (NEGATIVE) U Marijuana (THC) Screen (NEGATIVE) Ethyl Alcohol mg/dL SARS-CoV-2 RNA (TO) (NEGATIVE) Blood Type O NEGATIVE Antibody Screen NEGATIVE 09/26/20 09/26/20 09/26/20 Range/Units 19:02 19:02 20:48 WBC (4.0-11.0) K/uL RBC (4.30-5.90) M/uL Hgb (12.0-16.0) g/dL Hct (36.0-46.0) % MCV (80.0-98.0) fL MCH (27.0-32.0) pg MCHC (31.0-37.0) g/dL RDW Std Deviation (28.0-62.0) fl RDW Coeff of Mega (11.0-15.0) % Plt Count (150-400) K/uL MPV (7.40-12.00) fL Neut % (Auto) (48.0-80.0) % Lymph % (Auto) (16.0-40.0) % Ocean % (Auto) (0.0-15.0) % Eos % (Auto) (0.0-7.0) % Baso % (Auto) (0.0-1.5) % Neut # (Auto) (1.4-5.7) K/uL Lymph # (Auto) (0.6-2.4) K/uL [place] # (Auto) (0.0-0.8) K/uL Eos # (Auto) (0.0-0.7) K/uL Baso # (Auto) (0.0-0.1) K/uL Nucleated RBC % /100WBC Nucleated RBCs # K/uL INR Sodium (136-145) mmol/L Potassium (3.5-5.1) mmol/L Chloride (98-107) mmol/L Carbon Dioxide (21.0-32.0) mmol/L BUN (7.0-18.0) mg/dL Creatinine (0.6-1.0) mg/dL Est Cr Clr Drug Dosing mL/min Estimated GFR (MDRD) ml/min Glucose (74-106) mg/dL Lactic Acid 1.1 (0.4-2.0) mmol/L Calcium (8.5-10.1) mg/dL Total Bilirubin (0.2-1.0) mg/dL AST (15-37) IU/L ALT (14-63) IU/L Alkaline Phosphatase (46-116) U/L Creatine Kinase (26-308) U/L Troponin I (0.000-0.056) ng/mL Total Protein (6.4-8.2) g/dL Albumin (3.4-5.0) g/dL Globulin (2.6-4.0) g/dL Albumin/Globulin Ratio (0.9-1.6) Lipase (73-393) U/L TSH 3rd Generation (0.36-3.74) uIU/mL Prolactin ng/mL Urine Color Urine Appearance Urine pH (5.0-8.0) Ur Specific [place] (1.001-1.035) Urine Protein (NEGATIVE) mg/dL Urine Glucose (UA) (NEGATIVE) mg/dL Urine Ketones (NEGATIVE) mg/dL Urine Occult Blood (NEGATIVE) Urine Nitrite (NEGATIVE) Urine Bilirubin (NEGATIVE) Urine Urobilinogen (<2.0) EU/dL Ur Leukocyte Esterase (NEGATIVE) Urine RBC (0-2/HPF) Urine WBC (0-5/HPF) Ur Epithelial Cells (NONE-FEW) Urine Bacteria (NEGATIVE) Urine HCG, Qual (NEGATIVE) Salicylates (0-20) mg/dL Urine Opiates Screen NEGATIVE (NEGATIVE) Ur Oxycodone Screen NEGATIVE (NEGATIVE) Urine Methadone Screen NEGATIVE (NEGATIVE) Acetaminophen ug/mL Ur Barbiturates Screen NEGATIVE (NEGATIVE) Ur Phencyclidine Scrn NEGATIVE (NEGATIVE) Ur Amphetamine Screen NEGATIVE (NEGATIVE) U Methamphetamines Scrn NEGATIVE (NEGATIVE) U Benzodiazepines Scrn NEGATIVE (NEGATIVE) U Cocaine Metab Screen NEGATIVE (NEGATIVE) U Marijuana (THC) Screen NEGATIVE (NEGATIVE) Ethyl Alcohol mg/dL SARS-CoV-2 RNA (TO) NEGATIVE (NEGATIVE) Blood Type Antibody Screen Result Diagrams: 09/26/20 17:51 09/26/20 17:51 Sepsis Event Note - Evaluation Sepsis Screening Result: No Definite Risk - Focused Exam Vital Signs: Vital Signs Temp Pulse Resp BP BP Pulse Ox 09/26/20 19:12 85 18 137/92 H 100 09/26/20 18:27 84 18 133/73 99 09/26/20 18:00 36.7 C 78 16 128/71 100 09/26/20 17:45 36.7 C 80 18 130/71 98 09/26/20 17:36 35.2 C L 89 26 H 139/108 H 100 - Problem List (1) Syncope SNOMED Code(s): 154156840 ICD Code: R55 - SYNCOPE AND COLLAPSE Status: Acute Current Visit: Yes Qualifiers: Syncope type: unspecified Qualified Code(s): R55 - Syncope and collapse (2) Hypothyroidism SNOMED Code(s): 37020372 ICD Code: E03.9 - HYPOTHYROIDISM, UNSPECIFIED Status: Acute Current Visit: Yes (3) Thyroid carcinoma SNOMED Code(s): 924132750 ICD Code: C73 - MALIGNANT NEOPLASM OF THYROID GLAND Status: Acute Current Visit: Yes Problem List Initiated/Reviewed/Updated: Yes Orders Last 24hrs: Active Orders 24 hr Category Date Time Status Patient Status [ADT] Routine ADT 09/26/20 20:46 Active Ambulate [RC] ASDIRECTED Care 09/26/20 21:09 Active Antiembolic Devices [RC] PER UNIT ROUTINE Care 09/26/20 21:14 Active Blood Glucose Check, Bedside [RC] ONETIME Care 09/26/20 17:43 Active Cervical Spine Precautions [RC] ASDIRECTED Care 09/26/20 17:43 Active EKG Documentation Completion [RC] AM Care 09/26/20 19:28 Active EKG Documentation Completion [RC] STAT Care 09/26/20 17:43 Active Insert Urinary Catheter [OM.PC] Q24H Care 09/26/20 18:00 Ordered Orogastric Tube Managment [Gastrointestinal Tube Mgmt] Care 09/26/20 17:58 Active [RC] ASDIRECTED Oxygen Therapy [RC] PRN Care 09/26/20 21:09 Active RASS Sedation Scale [RC] ASDIRECTED Care 09/26/20 17:44 Active RT Aerosol Therapy [RC] ASDIRECTED Care 09/26/20 21:14 Active Urinary Catheter Assessment [RC] ASDIRECTED Care 09/26/20 17:59 Active VTE/DVT Education [RC] PER UNIT ROUTINE Care 09/26/20 21:09 Active Vital Signs [RC] Q4H Care 09/26/20 21:09 Active Regular Diet [DIET] Diet 09/26/20 Dinner Active TROPONIN I [CHEM] Q6H Lab 09/26/20 21:08 Ordered TROPONIN I [CHEM] Q6H Lab 09/27/20 03:08 Ordered Acetaminophen [TylenoL] Med 09/26/20 21:09 Active 650 mg PO Q4H PRN Albuterol/Ipratropium [DuoNeb 3.0-0.5 MG/3 ML] Med 09/26/20 21:09 Active 3 ml NEB Q4HRRT PRN Lactated Ringers [Ringers, Lactated] 1,000 ml Med 09/26/20 21:15 Active IV ASDIRECTED Ondansetron [Zofran] Med 09/26/20 21:09 Active 4 mg IVPUSH Q4H PRN Sodium Chloride 0.9% [Saline Flush] Med 09/26/20 17:43 Active 10 ml FLUSH ASDIRECTED PRN Sodium Chloride 0.9% [Saline Flush] Med 09/26/20 17:43 Active 10 ml FLUSH ASDIRECTED PRN Sodium Chloride 0.9% [Saline Flush] Med 09/26/20 17:43 Active 2.5 ml FLUSH ASDIRECTED PRN Sodium Chloride 0.9% [Saline Flush] Med 09/26/20 17:43 Active 2.5 ml FLUSH ASDIRECTED PRN Desired Level of Sedation (RASS) [AST] Click to Edit Oth 09/26/20 17:44 Ordered Saline Lock Insert [OM.PC] Stat Oth 09/26/20 17:43 Ordered Sequential Compression Device [OM.PC] Per Unit Routine Oth 09/26/20 21:10 Ordered Resuscitation Status Routine Resus Stat 09/26/20 21:09 Ordered Medication Orders Acetaminophen (Acetaminophen 325 Mg Tab) 650 mg PO Q4H PRN PRN Reason: Pain (Mild 1-3)/fever Albuterol/Ipratropium (Albuterol/Ipratropium 3.0-0.5 Mg/3 Ml Neb Soln) 3 ml NEB Q4HRRT PRN PRN Reason: Shortness Of Breath/wheezing Lactated Ringer's (Ringers, Lactated) 1,000 mls @ 125 mls/hr IV ASDIRECTED WILMER Ondansetron HCl (Ondansetron 4 Mg/2 Ml Sdv) 4 mg IVPUSH Q4H PRN PRN Reason: Nausea/Vomiting Sodium Chloride (Sodium Chloride 0.9% 10 Ml Syringe) 10 ml FLUSH ASDIRECTED PRN PRN Reason: Keep Vein Open Last Admin: 09/26/20 18:40 Dose: 10 ml Documented by: DAYANA Sodium Chloride (Sodium Chloride 0.9% 2.5 Ml Syringe) 2.5 ml FLUSH ASDIRECTED PRN PRN Reason: Keep Vein Open Last Admin: 09/26/20 18:40 Dose: 2.5 ml Documented by: DAYANA Sodium Chloride (Sodium Chloride 0.9% 10 Ml Syringe) 10 ml FLUSH ASDIRECTED PRN PRN Reason: Keep Vein Open Last Admin: 09/26/20 18:40 Dose: 10 ml Documented by: DAYANA Sodium Chloride (Sodium Chloride 0.9% 2.5 Ml Syringe) 2.5 ml FLUSH ASDIRECTED PRN PRN Reason: Keep Vein Open Last Admin: 09/26/20 18:40 Dose: 2.5 ml Documented by: DAYANA Assessment/Plan Comment:: Patient is a 45-year-old female admitted for possible syncope Labs look unremarkable, imaging does not show any acute injuries or fractures Continuous telemetry overnight Check serial troponins so far tropes have been negative, EKG unremarkable, ACS unlikely We will check lactic acid CPK and prolactin Will obtain 2D echo Continuous IV fluid for hydration Tylenol for pain Patient very tearful, possible psychosomatic component to her presentation versus syncope or seizure May need an outpatient EEG and MRI if symptoms continue to occur Zio patch upon discharge Resume home meds as appropriate
[2020-09-26] MEDS: Lactated Ringers 1,000 ML IV SCH (22:31)
[2020-09-27] MEDS: Lactated Ringers 1,000 ML IV SCH (06:59)
[2020-09-27] MEDS ORDERED: Levothyroxine 100 MCG Tab PO SCH (09:33)
--- NOTE | 2020-09-27 11:52 | PCM.DCSUM1 ---
Discharge Summary - Hospital Course Free Text/Narrative:: Patient is a 45-year-old female with past medical history of thyroid cancer status post resection, last radiation in November 2019 follows up with an awning hanger helper on outpatient basis for a remanent nodule of the cancer, who comes in secondary to episode of syncope and unresponsiveness. In the ER patient was found to be unresponsive and due to concerns of airway protection patient was intubated and extensive imaging was done including CT scan of the h ead, neck, spine all of that came back negative for any acute fractures or injuries, incidentally C7 hemangioma was noted, there was also a 1 cm hepatic lesion noted which was not well evaluated on the thoracic CT, which will need outpatient follow-up. Soon after the imaging patient started to fight the tube and wake up, as a result patient was extubated and her respiratory status was monitored closely. She was able to speak and maintain her airway thereafter. Reportedly patient was seen by her granddaughter who states that patient became shaky and lost consciousness and fell. There was no reported seizure-like activity. Per patient she has been having dizzy episodes since March of this year. States that she had informed her awning hanger helper about these episodes but nothing really was done. She states that she has not reported the symptoms to her primary care doctor Dr. Rasheed, patient states that 2 days back she was holding a child at a care center when she had a similar episode which ended up in patient dropping the baby causing the baby to have head injury. Patient was quite tearful during my conversation. Reported some soreness in her throat from intubation but no chest pain, nausea, vomiting or syncope. Patient denied any suicidal ideation. Patient has no history of depression or anxiety. EKG unremarkable, initial troponin was negative. Patient was admitted to the hospital overnight for observation. Patient was put on telemetry to monitor for any arrhythmias, patient had no arrhythmias overnight. Troponins were trended which came out negative as well. Patient had no further episodes of syncope. She was able to get some sleep overnight, following morning she stated she feels a little better but was still very tearful and had a occipital headache possibly from falling on the backside of her head. Patient was counseled about seeing a psychologist for the recent traumatic event she had undergone. Patient and family both were informed about the incidental CT scan findings and recommended to follow-up outpatient with her primary care provider. Patient was also recommended to get a 2D echo on outpatient basis the prescription for which was provided. Patient was discharged with zio patch in place for 2 weeks to monitor for any arrhythmias. Patient was recommended to see her primary care doctor upon discharge. Diagnosis: Stroke: No - Discharge Data Discharge Date: 09/27/20 Discharge Disposition: Home, Self-Care 01 Condition: Good - Referral to Home Health Primary Care Physician: PCP None - Discharge Diagnosis/Problem(s) (1) Syncope SNOMED Code(s): 438584473 ICD Code: R55 - SYNCOPE AND COLLAPSE Status: Acute Current Visit: Yes Qualifiers: Syncope type: unspecified Qualified Code(s): R55 - Syncope and collapse (2) Hypothyroidism SNOMED Code(s): 08195042 ICD Code: E03.9 - HYPOTHYROIDISM, UNSPECIFIED Status: Acute Current Visit: Yes (3) Thyroid carcinoma SNOMED Code(s): 063557120 ICD Code: C73 - MALIGNANT NEOPLASM OF THYROID GLAND Status: Acute Current Visit: Yes - Patient Instructions Diet: Usual Diet as Tolerated Activity: As Tolerated Driving: Do Not Drive Showering/Bathing: May Shower Notify Provider of: Fever, Increased Pain, Swelling and Redness, Drainage, Nausea and/or Vomiting Other/Special Instructions: please obtain 2D ECHO (script has been provided) - Discharge Plan *PRESCRIPTION DRUG MONITORING PROGRAM REVIEWED*: No *COPY OF PRESCRIPTION DRUG MONITORING REPORT IN PATIENT BOUBACAR: No Prescriptions/Med Rec: Acetaminophen [Tylenol] 650 mg PO Q6H PRN #20 tablet PRN Reason: Pain (Mild 1-3)/fever Home Medications: Home Meds Levothyroxine [Synthroid] 100 mcg PO ACBREAKFAST 09/26/20 [History] Acetaminophen [Tylenol] 650 mg PO Q6H PRN #20 tablet 09/27/20 [Rx] Patient Handouts: Hypothyroidism, Thyroid Cancer, Near-Syncope, [id number], Acetaminophen tablets or caplets, Echocardiogram Referrals: Quincy Rasheed MD [Physician] - 11/21/20 2:45 pm Scottie Horner MD [Resident] - 10/13/20 1:00 pm (We have made you hospital follow up appointment with one of our resident providers located in [facility] ([phone]) so you will be seen in a timely manner; we have also made an appointment with Dr. Rasheed later this fall. ) - Discharge Summary/Plan Comment DC Time >30 min.: No - Patient Data Vitals - Most Recent: Last Vital Signs Temp 36.7 C 09/27/20 11:48 Pulse 62 09/27/20 11:48 Resp 18 09/27/20 11:48 BP 122/76 09/27/20 11:48 Pulse Ox 98 09/27/20 11:48 Weight - Most Recent: 98.974 kg I&O - Last 24 hours: Intake & Output 09/26/20 09/27/20 09/27/20 22:59 06:59 14:59 Intake Total 0 Output Total 500 Balance -500 Lab Results - Last 24 hrs: Laboratory Results - last 24 hr 09/26/20 09/26/20 09/26/20 Range/Units 17:51 17:51 17:51 WBC 10.04 (4.0-11.0) K/uL RBC 4.90 (4.30-5.90) M/uL Hgb 14.8 (12.0-16.0) g/dL Hct 43.1 (36.0-46.0) % MCV 88.0 (80.0-98.0) fL MCH 30.2 (27.0-32.0) pg MCHC 34.3 (31.0-37.0) g/dL RDW Std Deviation 41.2 (28.0-62.0) fl RDW Coeff of Mega 13 (11.0-15.0) % Plt Count 356 (150-400) K/uL MPV 10.80 (7.40-12.00) fL Neut % (Auto) 54.8 (48.0-80.0) % Lymph % (Auto) 35.6 (16.0-40.0) % Bullock % (Auto) 8.7 (0.0-15.0) % Eos % (Auto) 0.6 (0.0-7.0) % Baso % (Auto) 0.3 (0.0-1.5) % Neut # (Auto) 5.5 (1.4-5.7) K/uL Lymph # (Auto) 3.6 H (0.6-2.4) K/uL Bullock # (Auto) 0.9 H (0.0-0.8) K/uL Eos # (Auto) 0.1 (0.0-0.7) K/uL Baso # (Auto) 0.0 (0.0-0.1) K/uL Nucleated RBC % 0.0 /100WBC Nucleated RBCs # 0 K/uL INR 0.97 Sodium 140 (136-145) mmol/L Potassium 3.7 (3.5-5.1) mmol/L Chloride 105 (98-107) mmol/L Carbon Dioxide 20.1 L (21.0-32.0) mmol/L BUN 15 (7.0-18.0) mg/dL Creatinine 1.1 H (0.6-1.0) mg/dL Est Cr Clr Drug Dosing 68.92 mL/min Estimated GFR (MDRD) 54.2 ml/min Glucose 110 H (74-106) mg/dL Lactic Acid (0.4-2.0) mmol/L Calcium 8.8 (8.5-10.1) mg/dL Total Bilirubin 0.5 (0.2-1.0) mg/dL AST 19 (15-37) IU/L ALT 25 (14-63) IU/L Alkaline Phosphatase 96 (46-116) U/L Creatine Kinase (26-308) U/L Troponin I (0.000-0.056) ng/mL Total Protein 7.8 (6.4-8.2) g/dL Albumin 4.5 (3.4-5.0) g/dL Globulin 3.3 (2.6-4.0) g/dL Albumin/Globulin Ratio 1.4 (0.9-1.6) Lipase 83 (73-393) U/L TSH 3rd Generation (0.36-3.74) uIU/mL Prolactin ng/mL Urine Color Urine Appearance Urine pH (5.0-8.0) Ur Specific [place] (1.001-1.035) Urine Protein (NEGATIVE) mg/dL Urine Glucose (UA) (NEGATIVE) mg/dL Urine Ketones (NEGATIVE) mg/dL Urine Occult Blood (NEGATIVE) Urine Nitrite (NEGATIVE) Urine Bilirubin (NEGATIVE) Urine Urobilinogen (<2.0) EU/dL Ur Leukocyte Esterase (NEGATIVE) Urine RBC (0-2/HPF) Urine WBC (0-5/HPF) Ur Epithelial Cells (NONE-FEW) Urine Bacteria (NEGATIVE) Urine HCG, Qual (NEGATIVE) Salicylates (0-20) mg/dL Urine Opiates Screen (NEGATIVE) Ur Oxycodone Screen (NEGATIVE) Urine Methadone Screen (NEGATIVE) Acetaminophen ug/mL Ur Barbiturates Screen (NEGATIVE) Ur Phencyclidine Scrn (NEGATIVE) Ur Amphetamine Screen (NEGATIVE) U Methamphetamines Scrn (NEGATIVE) U Benzodiazepines Scrn (NEGATIVE) U Cocaine Metab Screen (NEGATIVE) U Marijuana (THC) Screen (NEGATIVE) Ethyl Alcohol < 3.0 mg/dL SARS-CoV-2 RNA (TO) (NEGATIVE) Blood Type Antibody Screen 09/26/20 09/26/20 09/26/20 Range/Units 17:51 17:51 17:51 WBC (4.0-11.0) K/uL RBC (4.30-5.90) M/uL Hgb (12.0-16.0) g/dL Hct (36.0-46.0) % MCV (80.0-98.0) fL MCH (27.0-32.0) pg MCHC (31.0-37.0) g/dL RDW Std Deviation (28.0-62.0) fl RDW Coeff of Mega (11.0-15.0) % Plt Count (150-400) K/uL MPV (7.40-12.00) fL Neut % (Auto) (48.0-80.0) % Lymph % (Auto) (16.0-40.0) % Bullock % (Auto) (0.0-15.0) % Eos % (Auto) (0.0-7.0) % Baso % (Auto) (0.0-1.5) % Neut # (Auto) (1.4-5.7) K/uL Lymph # (Auto) (0.6-2.4) K/uL Bullock # (Auto) (0.0-0.8) K/uL Eos # (Auto) (0.0-0.7) K/uL Baso # (Auto) (0.0-0.1) K/uL Nucleated RBC % /100WBC Nucleated RBCs # K/uL INR Sodium (136-145) mmol/L Potassium (3.5-5.1) mmol/L Chloride (98-107) mmol/L Carbon Dioxide (21.0-32.0) mmol/L BUN (7.0-18.0) mg/dL Creatinine (0.6-1.0) mg/dL Est Cr Clr Drug Dosing mL/min Estimated GFR (MDRD) ml/min Glucose (74-106) mg/dL Lactic Acid (0.4-2.0) mmol/L Calcium (8.5-10.1) mg/dL Total Bilirubin (0.2-1.0) mg/dL AST (15-37) IU/L ALT (14-63) IU/L Alkaline Phosphatase (46-116) U/L Creatine Kinase 202 (26-308) U/L Troponin I < 0.050 (0.000-0.056) ng/mL Total Protein (6.4-8.2) g/dL Albumin (3.4-5.0) g/dL Globulin (2.6-4.0) g/dL Albumin/Globulin Ratio (0.9-1.6) Lipase (73-393) U/L TSH 3rd Generation 0.38 (0.36-3.74) uIU/mL Prolactin 34.0 ng/mL Urine Color Urine Appearance Urine pH (5.0-8.0) Ur Specific [place] (1.001-1.035) Urine Protein (NEGATIVE) mg/dL Urine Glucose (UA) (NEGATIVE) mg/dL Urine Ketones (NEGATIVE) mg/dL Urine Occult Blood (NEGATIVE) Urine Nitrite (NEGATIVE) Urine Bilirubin (NEGATIVE) Urine Urobilinogen (<2.0) EU/dL Ur Leukocyte Esterase (NEGATIVE) Urine RBC (0-2/HPF) Urine WBC (0-5/HPF) Ur Epithelial Cells (NONE-FEW) Urine Bacteria (NEGATIVE) Urine HCG, Qual (NEGATIVE) Salicylates 0.8 (0-20) mg/dL Urine Opiates Screen (NEGATIVE) Ur Oxycodone Screen (NEGATIVE) Urine Methadone Screen (NEGATIVE) Acetaminophen <2.0 ug/mL Ur Barbiturates Screen (NEGATIVE) Ur Phencyclidine Scrn (NEGATIVE) Ur Amphetamine Screen (NEGATIVE) U Methamphetamines Scrn (NEGATIVE) U Benzodiazepines Scrn (NEGATIVE) U Cocaine Metab Screen (NEGATIVE) U Marijuana (THC) Screen (NEGATIVE) Ethyl Alcohol mg/dL SARS-CoV-2 RNA (TO) (NEGATIVE) Blood Type Antibody Screen 09/26/20 09/26/20 09/26/20 Range/Units 18:26 19:02 19:02 WBC (4.0-11.0) K/uL RBC (4.30-5.90) M/uL Hgb (12.0-16.0) g/dL Hct (36.0-46.0) % MCV (80.0-98.0) fL MCH (27.0-32.0) pg MCHC (31.0-37.0) g/dL RDW Std Deviation (28.0-62.0) fl RDW Coeff of Mega (11.0-15.0) % Plt Count (150-400) K/uL MPV (7.40-12.00) fL Neut % (Auto) (48.0-80.0) % Lymph % (Auto) (16.0-40.0) % Bullock % (Auto) (0.0-15.0) % Eos % (Auto) (0.0-7.0) % Baso % (Auto) (0.0-1.5) % Neut # (Auto) (1.4-5.7) K/uL Lymph # (Auto) (0.6-2.4) K/uL Bullock # (Auto) (0.0-0.8) K/uL Eos # (Auto) (0.0-0.7) K/uL Baso # (Auto) (0.0-0.1) K/uL Nucleated RBC % /100WBC Nucleated RBCs # K/uL INR Sodium (136-145) mmol/L Potassium (3.5-5.1) mmol/L Chloride (98-107) mmol/L Carbon Dioxide (21.0-32.0) mmol/L BUN (7.0-18.0) mg/dL Creatinine (0.6-1.0) mg/dL Est Cr Clr Drug Dosing mL/min Estimated GFR (MDRD) ml/min Glucose (74-106) mg/dL Lactic Acid (0.4-2.0) mmol/L Calcium (8.5-10.1) mg/dL Total Bilirubin (0.2-1.0) mg/dL AST (15-37) IU/L ALT (14-63) IU/L Alkaline Phosphatase (46-116) U/L Creatine Kinase (26-308) U/L Troponin I (0.000-0.056) ng/mL Total Protein (6.4-8.2) g/dL Albumin (3.4-5.0) g/dL Globulin (2.6-4.0) g/dL Albumin/Globulin Ratio (0.9-1.6) Lipase (73-393) U/L TSH 3rd Generation (0.36-3.74) uIU/mL Prolactin ng/mL Urine Color YELLOW Urine Appearance CLEAR Urine pH 6.0 (5.0-8.0) Ur Specific [place] 1.010 (1.001-1.035) Urine Protein NEGATIVE (NEGATIVE) mg/dL Urine Glucose (UA) NEGATIVE (NEGATIVE) mg/dL Urine Ketones NEGATIVE (NEGATIVE) mg/dL Urine Occult Blood NEGATIVE (NEGATIVE) Urine Nitrite NEGATIVE (NEGATIVE) Urine Bilirubin NEGATIVE (NEGATIVE) Urine Urobilinogen 0.2 (<2.0) EU/dL Ur Leukocyte Esterase NEGATIVE (NEGATIVE) Urine RBC 0-2 (0-2/HPF) Urine WBC 0-2 (0-5/HPF) Ur Epithelial Cells FEW (NONE-FEW) Urine Bacteria RARE (NEGATIVE) Urine HCG, Qual NEGATIVE (NEGATIVE) Salicylates (0-20) mg/dL Urine Opiates Screen (NEGATIVE) Ur Oxycodone Screen (NEGATIVE) Urine Methadone Screen (NEGATIVE) Acetaminophen ug/mL Ur Barbiturates Screen (NEGATIVE) Ur Phencyclidine Scrn (NEGATIVE) Ur Amphetamine Screen (NEGATIVE) U Methamphetamines Scrn (NEGATIVE) U Benzodiazepines Scrn (NEGATIVE) U Cocaine Metab Screen (NEGATIVE) U Marijuana (THC) Screen (NEGATIVE) Ethyl Alcohol mg/dL SARS-CoV-2 RNA (TO) (NEGATIVE) Blood Type O NEGATIVE Antibody Screen NEGATIVE 09/26/20 09/26/20 09/26/20 Range/Units 19:02 19:02 20:48 WBC (4.0-11.0) K/uL RBC (4.30-5.90) M/uL Hgb (12.0-16.0) g/dL Hct (36.0-46.0) % MCV (80.0-98.0) fL MCH (27.0-32.0) pg MCHC (31.0-37.0) g/dL RDW Std Deviation (28.0-62.0) fl RDW Coeff of Mega (11.0-15.0) % Plt Count (150-400) K/uL MPV (7.40-12.00) fL Neut % (Auto) (48.0-80.0) % Lymph % (Auto) (16.0-40.0) % Bullock % (Auto) (0.0-15.0) % Eos % (Auto) (0.0-7.0) % Baso % (Auto) (0.0-1.5) % Neut # (Auto) (1.4-5.7) K/uL Lymph # (Auto) (0.6-2.4) K/uL Bullock # (Auto) (0.0-0.8) K/uL Eos # (Auto) (0.0-0.7) K/uL Baso # (Auto) (0.0-0.1) K/uL Nucleated RBC % /100WBC Nucleated RBCs # K/uL INR Sodium (136-145) mmol/L Potassium (3.5-5.1) mmol/L Chloride (98-107) mmol/L Carbon Dioxide (21.0-32.0) mmol/L BUN (7.0-18.0) mg/dL Creatinine (0.6-1.0) mg/dL Est Cr Clr Drug Dosing mL/min Estimated GFR (MDRD) ml/min Glucose (74-106) mg/dL Lactic Acid 1.1 (0.4-2.0) mmol/L Calcium (8.5-10.1) mg/dL Total Bilirubin (0.2-1.0) mg/dL AST (15-37) IU/L ALT (14-63) IU/L Alkaline Phosphatase (46-116) U/L Creatine Kinase (26-308) U/L Troponin I (0.000-0.056) ng/mL Total Protein (6.4-8.2) g/dL Albumin (3.4-5.0) g/dL Globulin (2.6-4.0) g/dL Albumin/Globulin Ratio (0.9-1.6) Lipase (73-393) U/L TSH 3rd Generation (0.36-3.74) uIU/mL Prolactin ng/mL Urine Color Urine Appearance Urine pH (5.0-8.0) Ur Specific [place] (1.001-1.035) Urine Protein (NEGATIVE) mg/dL Urine Glucose (UA) (NEGATIVE) mg/dL Urine Ketones (NEGATIVE) mg/dL Urine Occult Blood (NEGATIVE) Urine Nitrite (NEGATIVE) Urine Bilirubin (NEGATIVE) Urine Urobilinogen (<2.0) EU/dL Ur Leukocyte Esterase (NEGATIVE) Urine RBC (0-2/HPF) Urine WBC (0-5/HPF) Ur Epithelial Cells (NONE-FEW) Urine Bacteria (NEGATIVE) Urine HCG, Qual (NEGATIVE) Salicylates (0-20) mg/dL Urine Opiates Screen NEGATIVE (NEGATIVE) Ur Oxycodone Screen NEGATIVE (NEGATIVE) Urine Methadone Screen NEGATIVE (NEGATIVE) Acetaminophen ug/mL Ur Barbiturates Screen NEGATIVE (NEGATIVE) Ur Phencyclidine Scrn NEGATIVE (NEGATIVE) Ur Amphetamine Screen NEGATIVE (NEGATIVE) U Methamphetamines Scrn NEGATIVE (NEGATIVE) U Benzodiazepines Scrn NEGATIVE (NEGATIVE) U Cocaine Metab Screen NEGATIVE (NEGATIVE) U Marijuana (THC) Screen NEGATIVE (NEGATIVE) Ethyl Alcohol mg/dL SARS-CoV-2 RNA (TO) NEGATIVE (NEGATIVE) Blood Type Antibody Screen 09/26/20 09/27/20 Range/Units 21:26 03:10 WBC (4.0-11.0) K/uL RBC (4.30-5.90) M/uL Hgb (12.0-16.0) g/dL Hct (36.0-46.0) % MCV (80.0-98.0) fL MCH (27.0-32.0) pg MCHC (31.0-37.0) g/dL RDW Std Deviation (28.0-62.0) fl RDW Coeff of Mega (11.0-15.0) % Plt Count (150-400) K/uL MPV (7.40-12.00) fL Neut % (Auto) (48.0-80.0) % Lymph % (Auto) (16.0-40.0) % Bullock % (Auto) (0.0-15.0) % Eos % (Auto) (0.0-7.0) % Baso % (Auto) (0.0-1.5) % Neut # (Auto) (1.4-5.7) K/uL Lymph # (Auto) (0.6-2.4) K/uL Bullock # (Auto) (0.0-0.8) K/uL Eos # (Auto) (0.0-0.7) K/uL Baso # (Auto) (0.0-0.1) K/uL Nucleated RBC % /100WBC Nucleated RBCs # K/uL INR Sodium (136-145) mmol/L Potassium (3.5-5.1) mmol/L Chloride (98-107) mmol/L Carbon Dioxide (21.0-32.0) mmol/L BUN (7.0-18.0) mg/dL Creatinine (0.6-1.0) mg/dL Est Cr Clr Drug Dosing mL/min Estimated GFR (MDRD) ml/min Glucose (74-106) mg/dL Lactic Acid (0.4-2.0) mmol/L Calcium (8.5-10.1) mg/dL Total Bilirubin (0.2-1.0) mg/dL AST (15-37) IU/L ALT (14-63) IU/L Alkaline Phosphatase (46-116) U/L Creatine Kinase (26-308) U/L Troponin I < 0.050 < 0.050 (0.000-0.056) ng/mL Total Protein (6.4-8.2) g/dL Albumin (3.4-5.0) g/dL Globulin (2.6-4.0) g/dL Albumin/Globulin Ratio (0.9-1.6) Lipase (73-393) U/L TSH 3rd Generation (0.36-3.74) uIU/mL Prolactin ng/mL Urine Color Urine Appearance Urine pH (5.0-8.0) Ur Specific [place] (1.001-1.035) Urine Protein (NEGATIVE) mg/dL Urine Glucose (UA) (NEGATIVE) mg/dL Urine Ketones (NEGATIVE) mg/dL Urine Occult Blood (NEGATIVE) Urine Nitrite (NEGATIVE) Urine Bilirubin (NEGATIVE) Urine Urobilinogen (<2.0) EU/dL Ur Leukocyte Esterase (NEGATIVE) Urine RBC (0-2/HPF) Urine WBC (0-5/HPF) Ur Epithelial Cells (NONE-FEW) Urine Bacteria (NEGATIVE) Urine HCG, Qual (NEGATIVE) Salicylates (0-20) mg/dL Urine Opiates Screen (NEGATIVE) Ur Oxycodone Screen (NEGATIVE) Urine Methadone Screen (NEGATIVE) Acetaminophen ug/mL Ur Barbiturates Screen (NEGATIVE) Ur Phencyclidine Scrn (NEGATIVE) Ur Amphetamine Screen (NEGATIVE) U Methamphetamines Scrn (NEGATIVE) U Benzodiazepines Scrn (NEGATIVE) U Cocaine Metab Screen (NEGATIVE) U Marijuana (THC) Screen (NEGATIVE) Ethyl Alcohol mg/dL SARS-CoV-2 RNA (TO) (NEGATIVE) Blood Type Antibody Screen Med Orders - Current: Current Medications Acetaminophen (Acetaminophen 325 Mg Tab) 650 mg PO Q4H PRN PRN Reason: Pain (Mild 1-3)/fever Albuterol/Ipratropium (Albuterol/Ipratropium 3.0-0.5 Mg/3 Ml Neb Soln) 3 ml NEB Q4HRRT PRN PRN Reason: Shortness Of Breath/wheezing Lactated Ringer's (Ringers, Lactated) 1,000 mls @ 125 mls/hr IV ASDIRECTED WILMER Last Admin: 09/27/20 06:59 Dose: 125 mls/hr Documented by: Levothyroxine Sodium (Levothyroxine 100 Mcg Tab) 100 mcg [facility] Last Admin: 09/27/20 10:28 Dose: 100 mcg Documented by: Ondansetron HCl (Ondansetron 4 Mg/2 Ml Sdv) 4 mg IVPUSH Q4H PRN PRN Reason: Nausea/Vomiting Sodium Chloride (Sodium Chloride 0.9% 10 Ml Syringe) 10 ml FLUSH ASDIRECTED PRN PRN Reason: Keep Vein Open Last Admin: 09/26/20 18:40 Dose: 10 ml Documented by: Sodium Chloride (Sodium Chloride 0.9% 2.5 Ml Syringe) 2.5 ml FLUSH ASDIRECTED P RN PRN Reason: Keep Vein Open Last Admin: 09/26/20 18:40 Dose: 2.5 ml Documented by: Sodium Chloride (Sodium Chloride 0.9% 10 Ml Syringe) 10 ml FLUSH ASDIRECTED PRN PRN Reason: Keep Vein Open Last Admin: 09/26/20 18:40 Dose: 10 ml Documented by: Sodium Chloride (Sodium Chloride 0.9% 2.5 Ml Syringe) 2.5 ml FLUSH ASDIRECTED PRN PRN Reason: Keep Vein Open Last Admin: 09/26/20 18:40 Dose: 2.5 ml Documented by: Discontinued Medications Sodium Chloride (Normal Saline) 1,000 mls @ 999 mls/hr IV .Bolus ONE Stop: 09/26/20 18:43 Last Admin: 09/26/20 18:40 Dose: 999 mls/hr Documented by: Propofol (Diprivan 100 Ml) 100 mls @ 2.7 mls/hr IV TITRATE WILMER; Protocol Rocuronium [place] (Rocuronium 100 Mg/10 Ml Mdv) 50 mg IV .STK-MED ONE Stop: 09/26/20 17:47 Discharge Operative/Procedures - Procedures Performed Intubation Indication: Airway Protection
== END 2020-09-27 15:17 | disposition home or self-care (01) ==
LOC: MW.ED 17:36 → MW.MS 20:46
PROVIDERS: ADMIT Student in an Organized Health Care Education/Training Program; ATTEND Student in an Organized Health Care Education/Training Program
DX: R55 Syncope and collapse (principal); Z20.822 Contact with and (suspected) exposure to COVID-19; Z85.850 Personal history of malignant neoplasm of thyroid; Z92.3 Personal history of irradiation; E89.0 Postprocedural hypothyroidism
CPT/HCPCS: 31500; 36415; 70450; 71045; 72125; 72128; 72131; 72170; 80053; 80143; 80179; 80305; 80307; 81001; 81025; 82550; 83605; 83690; 84146; 84443; 84484; 85025; 85610; 86850; 86900; 86901; 87635; 93005; 93306; 99285; A9270; J2704; J7030; J7120; G0378; U0002